=== PATIENT | male | born 1945 | race Caucasian/White ===

== ENCOUNTER → 2023-11-07 09:32 | Outpatient (REF) | payer MEDICARE, BC, SELFPAY | LOC: RAD 09:32 | PROVIDERS: ATTENDING PHYSICIAN Family Medicine | DX: M25.551 Pain in right hip (principal) | CPT/HCPCS: 73502 ==

== ENCOUNTER → 2023-12-04 14:51 | Outpatient (REF) | payer MEDICARE, BC, SELFPAY | LOC: HWRCS 14:51 | PROVIDERS: ATTENDING PHYSICIAN Internal Medicine Cardiovascular Disease; FAMILY PHYSICIAN Family Medicine | DX: I48.0 Paroxysmal atrial fibrillation (principal) | CPT/HCPCS: 93306 ==

== ENCOUNTER → 2023-12-07 13:05 | Outpatient (REF) | payer MEDICARE, BC, SELFPAY | LOC: RAD 13:05 | PROVIDERS: ATTENDING PHYSICIAN Physician Assistant; FAMILY PHYSICIAN Family Medicine | DX: M10.9 Gout, unspecified (principal); M25.511 Pain in right shoulder; M25.512 Pain in left shoulder | CPT/HCPCS: 73610; 73630 ==

== ENCOUNTER → 2024-01-15 07:16 | Outpatient (REF) | payer MEDICARE, BC, SELFPAY | LOC: RAD 07:16 | PROVIDERS: ATTENDING PHYSICIAN Internal Medicine Cardiovascular Disease; FAMILY PHYSICIAN Family Medicine | DX: I48.0 Paroxysmal atrial fibrillation (principal) | CPT/HCPCS: 76770 ==

== ENCOUNTER → 2024-05-15 06:47 | Outpatient (REF) | payer MEDICARE, BC, SELFPAY | LOC: RAD 06:47 | PROVIDERS: ATTENDING PHYSICIAN Internal Medicine Critical Care Medicine; FAMILY PHYSICIAN Family Medicine | DX: R91.1 Solitary pulmonary nodule (principal) | CPT/HCPCS: 71250 ==

== ENCOUNTER 2024-10-22 06:22 | Day surgery (SDC) | payer MEDICARE, BC, SELFPAY | END 2024-10-22 16:07 | disposition home or self-care (01) | LOC: GI 06:22 | PROVIDERS: ATTENDING PHYSICIAN Internal Medicine Gastroenterology | DX: Z12.11 Encounter for screening for malignant neoplasm of colon (principal); D12.7 Benign neoplasm of rectosigmoid junction; K63.5 Polyp of colon; K57.30 Diverticulosis of large intestine without perforation or abscess without bleeding; K55.20 Angiodysplasia of colon without hemorrhage; K64.0 First degree hemorrhoids; K29.50 Unspecified chronic gastritis without bleeding; K22.9 Disease of esophagus, unspecified; B38.9 Coccidioidomycosis, unspecified; K21.00 Gastro-esophageal reflux disease with esophagitis, without bleeding; K22.2 Esophageal obstruction; K44.9 Diaphragmatic hernia without obstruction or gangrene; K31.89 Other diseases of stomach and duodenum; R12 Heartburn; Z86.0100 Personal history of colon polyps, unspecified | CPT/HCPCS: 45385; 45380; 43239; 88305; 88342 ==

== ENCOUNTER → 2024-10-31 09:04 | Outpatient (REF) | payer MEDICARE, BC, SELFPAY | LOC: RAD 09:04 | PROVIDERS: ATTENDING PHYSICIAN Internal Medicine Rheumatology; FAMILY PHYSICIAN Family Medicine | DX: M81.0 Age-related osteoporosis without current pathological fracture (principal) | CPT/HCPCS: 77080 ==

== ENCOUNTER → 2024-11-25 14:22 | Outpatient (REF) | payer MEDICARE, BC, SELFPAY | LOC: RAD 14:22 | PROVIDERS: ATTENDING PHYSICIAN Nurse Practitioner Family; FAMILY PHYSICIAN Family Medicine | DX: M54.16 Radiculopathy, lumbar region (principal); M25.552 Pain in left hip | CPT/HCPCS: 72110; 73502 ==

== ENCOUNTER → 2025-03-13 07:44 | Outpatient (REF) | payer MEDICARE, BC, SELFPAY | LOC: RAD 07:44 | PROVIDERS: ATTENDING PHYSICIAN Nurse Practitioner; FAMILY PHYSICIAN Family Medicine | DX: I71.43 Infrarenal abdominal aortic aneurysm, without rupture (principal) | CPT/HCPCS: 76770 ==

== ENCOUNTER → 2025-03-26 12:43 | Outpatient (REF) | payer MEDICARE, BC, SELFPAY | LOC: RCS 12:43 | PROVIDERS: ATTENDING PHYSICIAN Nurse Practitioner; FAMILY PHYSICIAN Family Medicine | DX: I48.0 Paroxysmal atrial fibrillation (principal); E78.5 Hyperlipidemia, unspecified | CPT/HCPCS: 93017; 93350 ==

== ENCOUNTER → 2025-04-13 08:04 | Outpatient (REF) | payer MEDICARE, BC, SELFPAY ==
[2025-04-13 08:45] LABS: Hematocrit 39.0 % (39.0-52.0); Hemoglobin 13.1 g/dL (13.0-18.0); Mean Corp Hgb Conc. 33.6 g/dL (33.0-37.0); Mean Corpuscular Volume 95.6 fL (80.0-94.0); Nucleated Red Blood Cells % 0 % (-); Platelet Count 145 10^3/uL (130-400); Red Cell Dist. Width 14.5 % (11.5-14.5)
[2025-04-13 09:10] LABS: ALT (SGPT) 18 U/L (0-50); AST (SGOT) 23 U/L (17-59); Albumin 4.4 g/dl (3.5-5.0); Alkaline Phosphatase 84 U/L (38-126); Blood Urea Nitrogen 30 mg/dl (9-20); Calcium 9.2 mg/dl (8.4-10.2); Carbon Dioxide 25 mmol/L (22-30); Chloride 109 mmol/L (98-107); Glucose 105 mg/dl (70-99); Magnesium 2.1 mg/dl (1.6-2.3); Potassium 4.2 mmol/L (3.5-5.1); Sodium 142 mmol/L (135-145); Total Protein 6.5 g/dl (6.3-8.2); eGFR 55.53
== END ==
LOC: SDSPAT 08:04
PROVIDERS: ATTENDING PHYSICIAN Internal Medicine Cardiovascular Disease; FAMILY PHYSICIAN Family Medicine
DX: I49.5 Sick sinus syndrome (principal)
CPT/HCPCS: 36415; 80053; 83735; 85025; 93005

== ENCOUNTER 2025-04-17 09:58 | Day surgery (SDC) | payer MEDICARE, BC, SELFPAY ==
[2025-04-13 08:13] VITALS: BMI 25.2
[2025-04-17 10:12] VITALS: BMI 24.9
[2025-04-17 10:22] VITALS: BP 141/67
[2025-04-17] MEDS: VANCOCIN 200 IV (13:23)
--- NOTE | 2025-04-17 13:24 | PTCARENOTE ---
Vital signs prior to 1300 can not be verified by this user. This user received report on pt at 1305.
[2025-04-17 15:03] VITALS: BP 134/84
[2025-04-17] MEDS: TYLENOL 650 MG PO (15:17)
[2025-04-17 15:18] VITALS: BP 142/77
[2025-04-17 15:33] VITALS: BP 156/79
[2025-04-17 15:50] VITALS: BP 144/96
[2025-04-17 15:59] VITALS: BP 152/81
--- NOTE | 2025-04-17 16:03 | ITS.CL.PACE ---
[employer] - Pacemaker Implant
Pacemaker Implant
Procedure Report:
Permanent pacemaker generator change
Date of procedure April 17, 2025
Procedure:
1. Removal of dual chamber PPM generator at [facility]
2. Implant of new dual chamber PPM generator
INDICATION FOR PROCEDURE:
1. PPM generator at [facility]
2. Non-reversible symptomatic bradycardia due to sinus node dysfunction
HISTORY:
Please refer to office history and physical exam
'Time out' called and confirmed
Antibiotic: Vancomycin and aztreonam, he is penicillin allergic
Sedation/anesthesia: Via the anesthesia department
The patient was prepped and draped in sterile fashion. Lidocaine with epi was used for local anesthesia. An incision was made along the previous incision and the device and leads were carefully dissected from the pocket. Hemostasis was obtained
with electrocautery. The leads were from the device header and tested using an external analyzer. The pocket was liberally irrigated with antibiotic solution. Once testing (see below) showed adequate and stable function, the leads were
connected to the generator header and the leads and generator were placed within the pocket. The pocket was closed in the typical fashion.
EXPLANTED PPM GENERATOR: Medtronic
IMPLANTED PPM GENERATOR: Medtronic [id number] serial number [id number],
Existing RA lead: Medtronic 5076 serial number [id number] initially implanted January 09, 2005
Existing RV lead: Medtronic 5076 serial number [id number] initially implanted January 09, 2005
DEVICE TESTING:
Sensing: RA 1.4 mV, RV 10 mV
Capture: RA 075.V@0.5ms, RV 0.5 V@0.5ms
Ohms: RA 380, RV 627
FINAL PROGRAMMING
Robles Pacing: AAIR=DDDR 60 - 130 ppm
COMPLICATIONS:
none
CONCLUSIONS:
1. Successful explant of dual chamber permanent pacemaker
2. Successful implant of dual chamber permanent pacemaker
RECOMMENDATIONS:
1. In-Office wound check in 7-14 days.
2. Office interrogation in 6-8 weeks
== END 2025-04-17 16:10 | disposition home or self-care (01) ==
LOC: CATH 09:58
PROVIDERS: ATTENDING PHYSICIAN Internal Medicine Cardiovascular Disease; FAMILY PHYSICIAN Family Medicine
DX: Z45.010 Encounter for checking and testing of cardiac pacemaker pulse generator [battery] (principal); Z88.0 Allergy status to penicillin; I48.0 Paroxysmal atrial fibrillation; I49.5 Sick sinus syndrome; E78.5 Hyperlipidemia, unspecified; I10 Essential (primary) hypertension; Z79.82 Long term (current) use of aspirin; D86.9 Sarcoidosis, unspecified; G89.29 Other chronic pain; M10.9 Gout, unspecified; M35.3 Polymyalgia rheumatica; M85.80 Other specified disorders of bone density and structure, unspecified site; I71.40 Abdominal aortic aneurysm, without rupture, unspecified; N28.9 Disorder of kidney and ureter, unspecified; K21.9 Gastro-esophageal reflux disease without esophagitis; K44.9 Diaphragmatic hernia without obstruction or gangrene; K22.2 Esophageal obstruction; K52.9 Noninfective gastroenteritis and colitis, unspecified; Z86.0100 Personal history of colon polyps, unspecified; K57.90 Diverticulosis of intestine, part unspecified, without perforation or abscess without bleeding; N20.0 Calculus of kidney; Z86.73 Personal history of transient ischemic attack (TIA), and cerebral infarction without residual deficits; Z87.19 Personal history of other diseases of the digestive system; G43.909 Migraine, unspecified, not intractable, without status migrainosus; L40.9 Psoriasis, unspecified; Z85.828 Personal history of other malignant neoplasm of skin; L42 Pityriasis rosea; Z79.899 Other long term (current) drug therapy
CPT/HCPCS: 33228; C1785

== ENCOUNTER → 2025-04-29 10:10 | Outpatient (REF) | payer MEDICARE, BC, SELFPAY | LOC: RAD 10:10 | PROVIDERS: ATTENDING PHYSICIAN Family Medicine | DX: M25.512 Pain in left shoulder (principal) | CPT/HCPCS: 73030 ==

== ENCOUNTER → 2025-05-20 11:26 | Outpatient (REF) | payer MEDICARE, BC, SELFPAY | LOC: RAD 11:26 | PROVIDERS: ATTENDING PHYSICIAN Internal Medicine Critical Care Medicine; FAMILY PHYSICIAN Family Medicine | DX: R91.1 Solitary pulmonary nodule (principal) | CPT/HCPCS: 71250 ==

== ENCOUNTER → 2025-08-11 13:28 | Outpatient (REF) | payer MEDICARE, BC, SELFPAY | LOC: MRI 13:28 | PROVIDERS: ATTENDING PHYSICIAN Orthopaedic Surgery Hand Surgery; FAMILY PHYSICIAN Family Medicine | DX: M25.512 Pain in left shoulder (principal) | CPT/HCPCS: 73221 ==